=== PATIENT | male | born 1980 | race Caucasian/White ===

== ENCOUNTER 2020-10-04 18:54 | Emergency (ER) | payer OTHER ==
[~2020-10-04] VITALS: Ht 170.2 cm; Wt 70.3 kg
[~2020-10-04 18:54] MED LIST: ACETAMINOPHEN-1 EAC1 PO; ANAPROX DS550 MG PO; CEPHALEXIN500 MG PO; CIPRO500 MG PO; CLONIDINE HCL0.1 MG PO; KEFLEX500 MG PO; KETOPROFEN75 MG PO; MOTRIN800 MG PO; NORCO 5-325 TA1 EACH PO; PENICILLIN V P500 MG PO; PERCOCET 5-3251 EACH PO; PROVENTIL HFA6.7 GM INH; SUBOXONE 8 MG-1 EACH SL; ULTRAM50 MG PO; VISTARIL25 MG PO; ZITHROMAX250 MG PO; ZOFRAN ODT8 MG SL
[2020-10-04] MEDS ORDERED: DOXYCYCLINE HY100 MG PO (19:31)
== END 2020-10-04 19:45 | disposition home or self-care (01) ==
LOC: ED 18:54
DX: L08.9 Local infection of the skin and subcutaneous tissue, unspecified (principal); F17.200 Nicotine dependence, unspecified, uncomplicated; Z88.8 Allergy status to other drugs, medicaments and biological substances
CPT/HCPCS: 99282

== ENCOUNTER 2021-03-30 18:18 | Emergency (ER) | payer OTHER ==
[~2021-03-30] VITALS: Ht 170.2 cm; Wt 70.3 kg
[~2021-03-30 18:18] MED LIST changes: +DOXYCYCLINE HY100 MG PO
== END 2021-03-30 22:03 | disposition home or self-care (01) ==
LOC: ED 18:18
DX: J98.8 Other specified respiratory disorders (principal); B97.89 Other viral agents as the cause of diseases classified elsewhere; F17.200 Nicotine dependence, unspecified, uncomplicated; Z88.8 Allergy status to other drugs, medicaments and biological substances; Z20.822 Contact with and (suspected) exposure to COVID-19
CPT/HCPCS: 99283; C9803; U0003

== ENCOUNTER 2022-02-28 03:11 | Emergency (ER) | payer OTHER ==
[~2022-02-28] VITALS: Ht 170.2 cm; Wt 74.0 kg
[~2022-02-28 03:11] MED LIST changes: +CYCLOBENZAPRINE10 MG PO; +DICLOFENAC SODI75 MG PO
--- OUTSIDE RECORDS SUMMARY | 2022-02-28 03:14 | XMS ---
PreManage Notification: GABRIELA [place] Security Corporate Communications Manager Events 1 event(s) in the past 18 months Most recent security events: Elopement at [facility] 10/29/2021 14:01 - Other Details: PATIENT LWBS CRITERIA MET - PDMP CARE PROVIDERS There are no care providers on record at this time. Alessia has no Care Guidelines for this patient. Wanda VISIT COUNT (12 MO.) 4 [facility] TOTAL 4 NOTE: Visits indicate total known visits. ED/C VISIT TRACKING (12 MO.) [facility] COMPLAINT: - NAUSEA, VOMITING 11/28/2021 20:10 [facility] [place] TYPE: Emergency COMPLAINT: - BACK PAIN DIAGNOSES: - Allergy status to other drugs, medicaments and biological substances - Fall on same level due to ice and snow, initial encounter - Nicotine dependence, unspecified, uncomplicated - Pain in thoracic spine - Contusion of middle back wall of thorax, initial encounter - Contusion of lower back and pelvis, initial encounter 10/29/2021 14:01 [facility] [place] TYPE: Emergency COMPLAINT: - LOWER BACK PAIN 03/30/2021 18:20 [facility] [place] TYPE: Emergency COMPLAINT: - COLD SYMPTOMS DIAGNOSES: - Cough - Nicotine dependence, unspecified, uncomplicated - Allergy status to other drugs, medicaments and biological substances - Other specified respiratory disorders - Other viral agents as the cause of diseases classified elsewhere INPATIENT VISIT TRACKING (12 MO.) No inpatient visits to display in this time frame [email or web address]
[2022-02-28] MEDS ORDERED: BUPRENORPHINE HC8 MG SL (03:31)
[2022-02-28] MEDS ORDERED: DIVALPROEX SOD500 MG (03:33)
[2022-02-28] MEDS ORDERED: ONDANSETRON ODT8 MG PO (05:15)
== END 2022-02-28 05:30 | disposition home or self-care (01) ==
LOC: ED 03:11
DX: K29.70 Gastritis, unspecified, without bleeding (principal); F15.10 Other stimulant abuse, uncomplicated; F17.200 Nicotine dependence, unspecified, uncomplicated; Z88.8 Allergy status to other drugs, medicaments and biological substances; Z79.899 Other long term (current) drug therapy
CPT/HCPCS: 36415; 80053; 81001; 83690; 85025; 96374; 99284-25; A9270; J2405; J7030

== ENCOUNTER 2023-12-16 18:50 | Emergency (ER) | payer OTHER ==
[~2023-12-16] VITALS: Ht 170.2 cm; Wt 77.2 kg
[~2023-12-16 18:50] MED LIST changes: +BUPRENORPHINE HC8 MG SL; +CEPHALEXIN500 M1 PO; +DIVALPROEX SOD500 M1 PO; +DIVALPROEX SOD500 MG; +ONDANSETRON ODT8 MG PO
--- OUTSIDE RECORDS SUMMARY | 2023-12-16 18:58 | XMS ---
PreManage Notification: GABRIELA [place] Security Manager Of Product Events No recent Security Events currently on file CRITERIA MET - [facility] - 2 Visits in 30 Days CARE PROVIDERS -, [place]- Dentist: Tennis Racket Repairer [facility] PHONE: [phone] [facility] \F\ Center (FQ) [facility] PHONE: [phone] Alessia has no Care Guidelines for this patient. E.Kia VISIT COUNT (12 MO.) 2 [facility] TOTAL 2 NOTE: Visits indicate total known visits. ED/UCC VISIT TRACKING (12 MO.) 12/16/2023 18:[address] [facility] [place] TYPE: Emergency COMPLAINT: - RT FOOT PAIN, NON INJURY 11/22/2023 19:22 [facility] [place] TYPE: Emergency COMPLAINT: - R FOOT SWELLING DIAGNOSES: - Allergy status to other drugs, medicaments and biological substances - Cellulitis of right lower limb - Elevated C-reactive protein (CRP) - Elevated white blood cell count, unspecified - Nicotine dependence, unspecified, uncomplicated - Other prison (current) drug therapy - Pain in right foot INPATIENT VISIT TRACKING (12 MO.) No inpatient visits to display in this time frame [email or web address]
[2023-12-16] MEDS ORDERED: CEPHALEXIN500 MG PO (21:33)
[2023-12-16 21:42] VITALS: BP 130/81
== END 2023-12-16 21:40 | disposition home or self-care (01) ==
LOC: ED 18:50
DX: L03.115 Cellulitis of right lower limb (principal); F17.200 Nicotine dependence, unspecified, uncomplicated; Z88.8 Allergy status to other drugs, medicaments and biological substances
CPT/HCPCS: 99283

== ENCOUNTER 2024-01-24 02:46 | Emergency (ER) | payer OTHER ==
[~2024-01-24] VITALS: Ht 170.2 cm; Wt 72.6 kg
--- OUTSIDE RECORDS SUMMARY | 2024-01-24 02:48 | XMS ---
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 EJack VISIT COUNT (12 MO.) 3 [facility] TOTAL 3 NOTE: Visits indicate total known visits. ED/UCC VISIT TRACKING (12 MO.) 01/24/2024 02:46 [facility] [place] TYPE: Emergency COMPLAINT: - DRUG USE 12/16/2023 18:51 [facility] [place] TYPE: Emergency COMPLAINT: - RT FOOT PAIN, NON INJURY DIAGNOSES: - Allergy status to other drugs, medicaments and biological substances - Cellulitis of right lower limb - Nicotine dependence, unspecified, uncomplicated - Pain in right foot 11/22/2023 19:[address] [facility] [place] TYPE: Emergency COMPLAINT: - R FOOT SWELLING DIAGNOSES: - Allergy status to other drugs, medicaments and biological substances - Cellulitis of right lower limb - Elevated C-reactive protein (CRP) - Elevated white blood cell count, unspecified - Nicotine dependence, unspecified, uncomplicated - Other snf (current) drug therapy - Pain in right foot INPATIENT VISIT TRACKING (12 MO.) No inpatient visits to display in this time frame [email or web address]
[2024-01-24] MEDS ORDERED: diphenhydrAMINE HCL 50 MG/ML VIAL IM ONE (03:15)
[2024-01-24] MEDS ORDERED: LACTATED RINGER'S 1,000 ML IV ONE (04:15)
[2024-01-24 04:27] LABS: BILIRUBIN, URINE NEGATIVE (negative); BLOOD/HGB, URINE NEGATIVE (Negative); KETONE, URINE NEGATIVE (Negative); LEUK ESTERASE, URINE NEGATIVE (negative); NITRITE, URINE NEGATIVE (negative); PH, URINE 6.5 (5-7)
[2024-01-24 04:42] LABS: AMPHETAMINES, URINE POSITIVE (NEGATIVE); BARBITURATES, URINE NEGATIVE (NEGATIVE); BENZODIAZEPINE, URINE NEGATIVE (NEGATIVE); BUPRENORPHINE, URINE POSITIVE (NEGATIVE); CANNABINOID, URINE POSITIVE (NEGATIVE); COCAINE, URINE NEGATIVE (NEGATIVE); ECSTASY, URINE POSITIVE (NEGATIVE); FENTANYL, URINE POSITIVE (NEGATIVE); METHADONE, URINE NEGATIVE (NEGATIVE); OPIATES, URINE POSITIVE (NEGATIVE); OXYCODONE, URINE POSITIVE (NEGATIVE); PHENCYCLIDINE, URINE NEGATIVE (NEGATIVE)
[2024-01-24 04:47] LABS: HEMATOCRIT 42.5 % (35.0-50.0); HEMOGLOBIN 14.2 g/dL (12.0-18.0)
[2024-01-24 04:49] LABS: BASOPHILS 0.9 % (0-2); EOSINOPHILS 2.7 % (0-6); LYMPHOCYTES 16.5 % (24-44); MCH 30.2 (27-36); MCHC 33.4 g/dl (30-36); MCV 90.3 fl (81-99); MONOCYTES 6.5 % (0-12); NEUTROPHILS 73.4 % (39-80); PLATELET COUNT 314 K/uL (140-440)
[2024-01-24 05:10] LABS: ACETAMINOPHEN 0 ug/mL (10-30); ALBUMIN 3.6 g/dL (3.4-5.0); ALBUMIN/GLOBULIN RATIO 1.09 (1.1-2.4); ALCOHOL, MEDICAL <3 ng/dL (<3); ALKALINE PHOSPHATASE 102 U/L (46-116); ALT (SGPT) 27 U/L (14-59); ANION GAP 11.3 (7-21); AST (SGOT) 16 U/L (15-37); BILIRUBIN, TOTAL 0.3 ng/dL (0.2-1.0); BUN/CREATININE RATIO 16.66 (6.0-28.6); CALCIUM 8.7 mg/dL (8.5-10.1); CARBON DIOXIDE 29 mmol/L (21-32); CHLORIDE 103 mmol/L (98-107); GLOMERULAR FILTRATION RATE,EST 109 mL/min (>60); POTASSIUM 4.3 mmol/L (3.5-5.1); PROTEIN, TOTAL 6.9 g/dL (6.4-8.2); SALICYLATE 3.2 mg/dL (2.8-20.0); UREA NITROGEN 15 mg/dL (7-18)
[2024-01-24 05:48] VITALS: BP 137/99
[2024-01-24] MEDS ORDERED: CYCLOBENZAPRINE10 MG PO (23:29)
== END 2024-01-24 05:48 | disposition home or self-care (01) ==
LOC: ED 02:46
PROVIDERS: Internal Medicine
DX: F19.10 Other psychoactive substance abuse, uncomplicated (principal); T50.911A Poisoning by multiple unspecified drugs, medicaments and biological substances, accidental (unintentional), initial encounter; G24.09 Other drug induced dystonia; F31.9 Bipolar disorder, unspecified; F17.200 Nicotine dependence, unspecified, uncomplicated; Z88.5 Allergy status to narcotic agent; Z79.899 Other long term (current) drug therapy
CPT/HCPCS: 36415; 80053; 80307; 81003; 84443; 85025; G0480; J1200; J7121

== ENCOUNTER 2024-01-24 20:03 | Emergency (ER) | payer OTHER ==
[~2024-01-24] VITALS: Ht 170.2 cm; Wt 78.0 kg
--- OUTSIDE RECORDS SUMMARY | 2024-01-24 20:06 | XMS ---
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 EJack VISIT COUNT (12 MO.) [address] [place] [address] TOTAL 4 NOTE: Visits indicate total known visits. ED/UCC VISIT TRACKING (12 MO.) 01/24/2024 20:03 [facility] [place] TYPE: Emergency COMPLAINT: - CHEST PAIN 01/24/2024 02:46 [facility] [place] TYPE: Emergency COMPLAINT: - DRUG USE 12/16/2023 18:51 [facility] [place] TYPE: Emergency COMPLAINT: - RT FOOT PAIN, NON INJURY DIAGNOSES: - Allergy status to other drugs, medicaments and biological substances - Cellulitis of right lower limb - Nicotine dependence, unspecified, uncomplicated - Pain in right foot 11/22/2023 19:[address] [facility] [place] TYPE: Emergency COMPLAINT: - R FOOT SWELLING DIAGNOSES: - Allergy status to other drugs, medicaments and biological substances - Cellulitis of right lower limb - Elevated C-reactive protein (CRP) - Elevated white blood cell count, unspecified - Nicotine dependence, unspecified, uncomplicated - Other terminal supervisor (current) drug therapy - Pain in right foot INPATIENT VISIT TRACKING (12 MO.) No inpatient visits to display in this time frame [email or web address]
[2024-01-24] MEDS ORDERED: MORPHINE SULFATE 4 MG/ML VIAL IV ONE (20:15)
[2024-01-24] MEDS ORDERED: NITROGLYCERIN PACKET TOP ONE (20:15)
[2024-01-24] MEDS ORDERED: ASPIRIN 81 MG CHEW PO ONE (20:15)
[2024-01-24 21:35] LABS: BASOPHILS 0.8 % (0-2); EOSINOPHILS 3.4 % (0-6); HEMATOCRIT 41.6 % (35.0-50.0); HEMOGLOBIN 13.7 g/dL (12.0-18.0); LYMPHOCYTES 27.7 % (24-44); MCH 29.8 (27-36); MCHC 33.1 g/dl (30-36); MCV 90.1 fl (81-99); MONOCYTES 8.7 % (0-12); NEUTROPHILS 59.4 % (39-80); PLATELET COUNT 301 K/uL (140-440); RBC 4.61 M/ul (4.3-5.7); RDW 12.8 (10.5-15.0)
[2024-01-24 22:02] LABS: ALBUMIN 3.5 g/dL (3.4-5.0); ALBUMIN/GLOBULIN RATIO 1.09 (1.1-2.4); ANION GAP 8.7 (7-21); BILIRUBIN, TOTAL 0.2 ng/dL (0.2-1.0); BUN/CREATININE RATIO 14.89 (6.0-28.6); CALCIUM 8.8 mg/dL (8.5-10.1); CREATININE, SERUM 0.94 mg/dL (0.70-1.30); INR 0.97 (0.80-1.30); MAGNESIUM 1.9 mg/dL (1.8-2.4); POTASSIUM 3.7 mmol/L (3.5-5.1); PROTIME 12.5 Sec (11.2-14.2)
[2024-01-24 22:20] LABS: PROTEIN, TOTAL 6.8 g/dL (6.4-8.2)
[2024-01-24] MEDS ORDERED: KETOROLAC TROMETHAMINE 30 MG/ML VIAL IV ONE (22:45)
[2024-01-24] MEDS ORDERED: CYCLOBENZAPRINE10 MG PO (23:29)
[2024-01-24] MEDS ORDERED: CYCLOBENZAPRINE HCL 10 MG HOME.PACK PO ONE (23:30)
[2024-01-24 23:55] VITALS: BP 120/73
--- NOTE | 2024-01-26 23:15 | EKG ---
[facility] [address] [facility] [place] [address] Signed Normal sinus rhythm Non-diagnostic inferior Q waves Normal ECG Confirmed by Resee Sapp M.D. ([id number]) on 01/26/2024 11:15:21 PM Electronically Signed By: REESE SAPP MD 01/26/24 2315 PATIENT NAME: ALTHEAGABRIELA CROSS Electrocardiogram DATE OF : 82 PHYSICIAN: REESE SAPP MD REPORT #: [id number] REPORT IS CONFIDENTIAL AND NOT TO BE RELEASED WITHOUT AUTHORIZATION
== END 2024-01-24 23:55 | disposition home or self-care (01) ==
LOC: ED 20:03
PROVIDERS: Family Medicine
DX: R07.89 Other chest pain (principal); F17.200 Nicotine dependence, unspecified, uncomplicated; Z88.5 Allergy status to narcotic agent; Z79.899 Other long term (current) drug therapy
CPT/HCPCS: 36415; 71045; 80053; 83735; 83880; 84484; 85025; 85379; 85610; 93005; 93010; J1885